=== PATIENT | female | born 1990 | race Caucasian/White ===

== ENCOUNTER 2023-12-30 21:00 | Emergency (ER) | payer OTHER ==
[~2023-12-30] VITALS: Ht 162.6 cm; Wt 90.7 kg
[2023-12-30] VITALS (9 sets, daily range): BP systolic 94–111; BP diastolic 63–76
[~2023-12-30 21:00] MED LIST: BENADRYL25 MG OR; CEPHALEXIN500 MG OR; ERY-TAB333 MG OR; MACRODANTIN100 MG OR
[2023-12-30] MEDS ORDERED: SODIUM CHLORIDE 0.9% 1,000 ML IV STA (21:30)
[2023-12-30] MEDS ORDERED: LIDOCAINE VISCOUS 2% 15 ML UDC PO ONE (21:30)
[2023-12-30] MEDS ORDERED: Pantoprazole Sodium 40 MG VIAL (Protonix) IV STA (21:30)
[2023-12-30] MEDS ORDERED: ALUM & MAG HYDROX-SIMETHICONE 30 ML PO ONE (21:35)
[2023-12-30] MEDS ORDERED: PROMETHAZINE HCL 25 MG/ML AMP IV ONE (21:35)
[2023-12-30 21:40] LABS: BASO% 0.1 % (0-3); EOS% 2.3 % (0-8); HEMATOCRIT 45.6 % (37.0-47.0); HEMOGLOBIN 14.9 g/dl (12.0-16.0); IMMATURE GRANULOCYTES 0.6 % (0.0-5.0); LYMPH% 23.3 % (15-41); MEAN CELL VOLUME 88.9 fL CALC (80.0-100.0); MEAN CORPUSCULAR HGB CONC 32.7 g/dL CAL (32.0-36.0); MONO% 5.3 % (2-13); NEUT# 8.68 thou/uL (2.00-7.15); NEUT% 68.4 % (42-76); RED BLOOD COUNT 5.13 mill/uL (4.20-5.60); RED CELL DISTRI WIDTH 11.9 % (11.5-15.5)
[2023-12-30 21:42] LABS: URINE BLOOD DIPSTICK Negative (NEGATIVE); URINE GLUCOSE - DIPSTICK Negative (NEGATIVE); URINE KETONE Trace mg/dL (NEGATIVE); URINE LEUK ESTERASE Negative (NEGATIVE); URINE NITRITE - DIPSTICK Negative (Negative); URINE PROTEIN - DIPSTICK 30 mg/dL (NEG-TRACE); URINE SPECIFIC GRAVITY >=1.030; URINE UROBILINOGEN - DIPSTICK 0.2 E.U./dL (0.2)
[2023-12-30 21:43] LABS: URINE COLOR Yellow
[2023-12-30 21:48] LABS: URINE BACTERIA MODERATE hpf; URINE MUCUS MODERATE hpf (NONE-FEW); URINE SQUAMOUS EPITHELIAL CELL MANY EPI/hpf (0-FEW)
[2023-12-30 21:52] LABS: ALBUMIN 4.6 g/dL (3.2-5.0); CREATININE 0.7 mg/dL (0.5-1.0); POTASSIUM 3.6 mmol/l (3.5-5.1)
[2023-12-30 21:56] LABS: BILIRUBIN, TOTAL 0.8 mg/dL (0.02-1.3)
[2023-12-30] MEDS ORDERED: DICYCLOMINE HCL 10 MG/CAP PO ONE (22:15)
[2023-12-30] MEDS ORDERED: PROMETHAZINE HY25 M1 PO (23:43)
[2023-12-30] MEDS ORDERED: DICYCLOMINE HYD10 MG PO (23:43)
== END 2023-12-30 23:54 | disposition home or self-care (01) | DRG 392 ==
LOC: ED 21:00
PROVIDERS: Family Medicine
DX: A08.4 Viral intestinal infection, unspecified (principal); Z90.49 Acquired absence of other specified parts of digestive tract
CPT/HCPCS: Q9967; S0164